=== PATIENT | male | born 1965 | race Caucasian/White ===

== ENCOUNTER 2022-05-12 20:27 | Emergency (ER) | payer MEDICAID, SELFPAY ==
[2022-05-12 20:34] VITALS: BP 128/90; PULSE 119; RESP 18; TEMP 36.6; O2SAT 97
--- NOTE | 2022-05-12 20:43 | W.ED.EXTPRO ---
Documented by User: Bayron Serra MD 05/22/22 21:10 HPI - Extremity Problem General: Chief complaint: Extremity Problem,Nontraumatic Stated complaint: cp Time Seen by Provider: 05/12/22 20:42 History of Present Illness: 57-year-old gentleman with complex past medical history including known CAD with cardiac stent, known peripheral arterial disease with vascular stent in the right lower extremity, noncompliance with medication regimen due to cost presenting to the emergency department due to multiple concerns. He reports being at his baseline health and had sudden onset earlier this afternoon of nausea and vomiting. He also had diarrhea. No blood or abnormal colors in either. He notes mild abdominal cramping however no significant pain. Approximately 2 hours ago he noted acute change in his foot. It felt cold and painful as well as numb and inability to move. This is mildly improved however he does report that this felt similar to prior episode of arterial stent occlusion. Upon arrival in the emergency department he began having chest pain as well. Intensity symptoms moderate. Course has been as noted. No other specific changes in health, exacerbating, or alleviating factors identified. Onset (ago): hour(s) Pain Consistency: constant Location: lower extremity Quality: aching Radiation: distal Relieving factors: nothing Exacerbating factors: nothing Associated symptoms: Reports other Review of Systems General: Reports: 10 or more systems reviewed and unremarkable except in HPI and below [facility] ED PFSH: Medical History (Updated 05/22/22 @ 21:07 by Bayron Serra MD) Tobacco abuse Surgical History (Updated 05/22/22 @ 21:07 by Bayron Serra MD) Status post insertion of iliac artery stent Physical Exam Const: COMMON NORMALS: alert GENERAL APPEARANCE: cooperative, well developed and ill appearing HENMT: COMMON NORMALS: normocephalic and atraumatic HEAD & SCALP: normocephalic and atraumatic THROAT: posterior oropharynx normal Eye: COMMON NORMALS: conjunctivae normal CONJUNCTIVA: Yes conjunctivae normal SCLERA: sclerae normal Neck/C-Spine: COMMON NORMALS: supple GENERAL: Yes trachea midline Resp: COMMON NORMALS: clear to auscultation bilaterally EFFORT & INSPECTION: Yes able to speak in complete sentences AUSCULTATION: clear to auscultation bilaterally Cardio: COMMON NORMALS: regular rhythm RATE: tachycardic RHYTHM: regular rhythm GI: COMMON NORMALS: Soft to palpation PALPATION: Yes Soft to palpation and No Tenderness to palpation present (GI) Extremity: NARRATIVE EXTREMITY EXAM: Right lower extremity color comparable to contralateral side. Mildly cool compared to contralateral side. Unable to obtain Doppler signals DP/PT however there is capillary refill which is approximately 4 seconds. Patient has sensation and movement returned. GENERAL: Yes normal exam except as noted and No edema Neuro: COMMON NORMALS: moves all extremities SENSORIUM/ORIENTATION: Yes alert and No Orientation impaired Psych: COMMON NORMALS: mental status grossly normal and Normal thought process present THOUGHT PROCESS: Normal thought process present Course Vital Signs: Vital signs: Vital Signs Temperature 97.9 F 05/12/22 20:34 Pulse Rate 98 05/13/22 02:19 Respiratory Rate 23 H 05/13/22 02:19 Blood Pressure 164/66 05/13/22 02:19 Pulse Oximetry 96 05/13/22 02:19 Oxygen Delivery Me thod 05/13/22 01:00 MDM - Extremity (Nontraumatic) Medical Decision Making 57-year-old gentleman presenting for concerning symptoms related to possibility of acute vascular insufficiency. These have improved somewhat from initial however still quite concerning. Labs notable for leukocytosis and elevated hemoglobin. Metabolic panel with elevated lactate and evidence of metabolic acidosis. Negative range 2-hour delta troponin. Patient treated during ED course with fluids, analgesia, antiemetic, aspirin as well as heparin drip after discussion of risks and benefits based on ultrasound findings. Discussed with cardiology?interventional. Patient requires further catheterization of location of lesion as we have the etiology to perform some vascular intervention however not all. Patient care handed off to overnight ED physician Dr. Chow pending CTA. 57-year-old male checked out to me at shift change by the previous physician. This omar is resting right lower extremity pain. Extremity is a bit dusky with sluggish capillary refill. CTA shows a right common iliac artery stent suspected to be occluded at the distal portion he also has a right mid superficial femoral artery occlusion. There are some reconstitution of flow. But, with resting leg pain, increasing white blood cell count, mild lactic acid elevation, etc. there is concern for acute leg ischemia. He is on heparin. Consulted with our branch or department chief librarian, but given proximal occlusion vascular surgery consultation is indicated. We do not have vascular surgery at this institution. I spoke with vascular surgery at [facility] in [place], and he has agreed to see the patient in the emergency department. We are working on transfer. Medical Records I reviewed the patient's medical records. Lab Data I reviewed the patient's lab results. 05/12/22 20:45 05/12/22 20:45 Radiology Impressions Chest X-Ray 05/12/22 20:49 IMPRESSION: No acute findings. Duplex Scan Lower Extremity Artery 05/12/22 20:49 IMPRESSION: Monophasic blood flow throughout the lower extremity arterial system reflecting a degree of stenosis with a focal mid superficial femoral artery occlusion with color blood flow seen distally. Aorta w/Runoff CTA 05/12/22 21:44 IMPRESSION: 1. Right common iliac artery stent which is suspected to be occluded in the distal portion with contrast seen distally in the right internal and external iliac vessels. 2. Right mid superficial femoral artery appears occluded with reconstitution of the distal superficial femoral artery. 3. Left mid superficial femoral artery appears occluded with reconstitution of the distal superficial femoral artery. 4. Left popliteal artery eccentric atherosclerotic calcification with 50 to 70% luminal narrowing suspected. 5. Prominent fluid in the stomach, small and large bowel may reflect a gastroenterocolitis, in the appropriate clinical setting. 6. Right popliteal artery eccentric atherosclerotic calcification with less than 50% luminal narrowing. Laboratory Results WBC 21.4 10^3/uL (4.0-10.0) H 05/12/22 20:45 RBC 5.73 10^6/uL (4.1-5.3) H 05/12/22 20:45 Hgb 18.3 g/dL (11.7-16.6) H 05/12/22 20:45 Hct 53.3 % (42.0-52.0) H 05/12/22 20:45 MCV 93.0 fl (80-94) 05/12/22 20:45 MCH 31.9 pg (28.0-34.0) 05/12/22 20:45 MCHC 34.3 g/dL (30.0-36.0) 05/12/22 20:45 RDW 12.9 % (12.1-15.1) 05/12/22 20:45 Plt Count 245 10^3/cmm (130-400) 05/12/22 20:45 MPV 10.3 fL (7.4-10.4) 05/12/22 20:45 Neut % (Auto) 91.4 % 05/12/22 20:45 Lymph % (Auto) 1.4 % 05/12/22 20:45 Shackelford % (Auto) 5.8 % 05/12/22 20:45 Eos % (Auto) 0.3 % 05/12/22 20:45 Baso % (Auto) 0.6 % 05/12/22 20:45 Neut # (Auto) 19.60 10^3/uL (1.8-7.7) H 05/12/22 20:45 Lymph # (Auto) 0.3 10^3/uL (0.8-4.8) L 05/12/22 20:45 Shackelford # (Auto) 1.3 10^3/uL (0.2-0.9) H 05/12/22 20:45 Eos # (Auto) 0.1 10^3/uL (0.0-0.8) 05/12/22 20:45 Baso # (Auto) 0.1 10^3/uL (0.0-0.1) 05/12/22 20:45 Nucleated RBC % (auto) 0 % 05/12/22 20:45 Nucleated RBCs # 0.0 /100WBC 05/12/22 20:45 PT 12.80 SECONDS (12.1-14.9) 05/12/22 20:45 INR 0.94 (0.8-1.2) 05/12/22 20:45 APTT 26.8 SECONDS (23.9-36.7) 05/12/22 20:45 Sodium 138 mmol/L (136-145) 05/12/22 20:45 Potassium 3.7 mmol/L (3.5-5.1) 05/12/22 20:45 Chloride 101 mmol/L (98-107) 05/12/22 20:45 Carbon Dioxide 18 mmol/L (22-29) L 05/12/22 20:45 Anion Gap 22.7 (5-19) H 05/12/22 20:45 BUN 11 mg/dL (6-20) 05/12/22 20:45 Creatinine 0.9 mg/dL (0.7-1.2) 05/12/22 20:45 GFR Calculation 86.4 mL/min (90-130) L 05/12/22 20:45 Glucose 137 mg/dL (65-115) H 05/12/22 20:45 Calculated Osmolality 288 mOsm/kg (285-295) 05/12/22 20:45 Lactate 2.8 mmol/L (0.5-2.2) H 05/12/22 22:00 Calcium 9.7 mg/dL (8.5-10.5) 05/12/22 20:45 Total Bilirubin 0.9 mg/dL (0.15-1.2) 05/12/22 20:45 AST 21 U/L (0-40) 05/12/22 20:45 ALT 22 U/L (0-41) 05/12/22 20:45 Alkaline Phosphatase 154 U/L (40-130) H 05/12/22 20:45 Troponin T Baseline 16 ng/L (0-15) H 05/12/22 20:45 Troponin T 120 Minute 13.59 ng/L (0-15) 05/12/22 22:30 Delta Troponin T -2.41 ABS# (0-10) L 05/12/22 22:30 Total Protein 7.2 g/dL (6.6-8.7) 05/12/22 20:45 Albumin 4.5 g/dL (3.5-5.2) 05/12/22 20:45 Globulin 2.7 g/dL (1.3-4.6) 05/12/22 20:45 Critical Care Time Critical Care Time: Critical Care Time: Yes Total Critical Care Time: 35 Attestation: Due to a high probability of clinically significant, possibly life threatening deterioration, the patient required my highest level of attention and preparedness to intervene emergently and I personally spent this critical care time directly and personally managing the patient. This critical care time included obtaining a history; examining the patient; pulse oximetry; ordering and review of laboratory and imaging studies; arranging urgent treatment with development of a management plan; evaluation of patient's response to treatment; frequent reassessment; and, discussions with other providers as applicable. It was exclusive of separately billable procedures. Primary system involved is vascular Discharge Plan Discharge Patient Disposition: Xfer Short-Term Hosp Clinical Impression: Acute occlusion of artery of lower extremity Condition: Fair Coding Level of Care Code ED Rotary Cutter Feeder for Chg Fwd Documented by User: Ramin Heriberto Geraldo, 05/14/22 12:28 HPI - Extremity Problem General: Chief complaint: Extremity Problem,Nontraumatic Stated complaint: cp Time Seen by Provider: 05/12/22 20:42 PFSH ED PFSH: Medical History (Updated 05/22/22 @ 21:07 by Bayron Serra MD) Tobacco abuse Surgical History (Updated 05/22/22 @ 21:07 by Bayron Serra MD) Status post insertion of iliac artery stent Course Consultations: Consultation #1: cezar, vascular surgery at [facility]. Vital Signs: Vital signs: Vital Signs Temperature 97.9 F 05/12/22 20:34 Pulse Rate 98 05/13/22 02:19 Respiratory Rate 23 H 05/13/22 02:19 Blood Pressure 164/66 05/13/22 02:19 Pulse Oximetry 96 05/13/22 02:19 Oxygen Delivery Me thod 05/13/22 01:00 MDM - Extremity (Nontraumatic) Medical Decision Making 57-year-old male checked out to me at shift change by the previous physician. This omar is resting right lower extremity pain. Extremity is a bit dusky with sluggish capillary refill. CTA shows a right common iliac artery stent suspected to be occluded at the distal portion he also has a right mid superficial femoral artery occlusion. There are some reconstitution of flow. But, with resting leg pain, increasing white blood cell count, mild lactic acid elevation, etc. there is concern for acute leg ischemia. He is on heparin. Consulted with our branch or department chief librarian, but given proximal occlusion vascular surgery consultation is indicated. We do not have vascular surgery at this institution. I spoke with vascular surgery at [facility] in [place], and he has agreed to see the patient in the emergency department. We are working on transfer. Lab Data 05/12/22 20:45 05/12/22 20:45 Radiology Impressions Chest X-Ray 05/12/22 20:49 IMPRESSION: No acute findings. Duplex Scan Lower Extremity Artery 05/12/22 20:49 IMPRESSION: Monophasic blood flow throughout the lower extremity arterial system reflecting a degree of stenosis with a focal mid superficial femoral artery occlusion with color blood flow seen distally. Aorta w/Runoff CTA 05/12/22 21:44 IMPRESSION: 1. Right common iliac artery stent which is suspected to be occluded in the distal portion with contrast seen distally in the right internal and external iliac vessels. 2. Right mid superficial femoral artery appears occluded with reconstitution of the distal superficial femoral artery. 3. Left mid superficial femoral artery appears occluded with reconstitution of the distal superficial femoral artery. 4. Left popliteal artery eccentric atherosclerotic calcification with 50 to 70% luminal narrowing suspected. 5. Prominent fluid in the stomach, small and large bowel may reflect a gastroenterocolitis, in the appropriate clinical setting. 6. Right popliteal artery eccentric atherosclerotic calcification with less than 50% luminal narrowing. Laboratory Results WBC 21.4 10^3/uL (4.0-10.0) H 05/12/22 20:45 RBC 5.73 10^6/uL (4.1-5.3) H 05/12/22 20:45 Hgb 18.3 g/dL (11.7-16.6) H 05/12/22 20:45 Hct 53.3 % (42.0-52.0) H 05/12/22 20:45 MCV 93.0 fl (80-94) 05/12/22 20:45 MCH 31.9 pg (28.0-34.0) 05/12/22 20:45 MCHC 34.3 g/dL (30.0-36.0) 05/12/22 20:45 RDW 12.9 % (12.1-15.1) 05/12/22 20:45 Plt Count 245 10^3/cmm (130-400) 05/12/22 20:45 MPV 10.3 fL (7.4-10.4) 05/12/22 20:45 Neut % (Auto) 91.4 % 05/12/22 20:45 Lymph % (Auto) 1.4 % 05/12/22 20:45 Shackelford % (Auto) 5.8 % 05/12/22 20:45 Eos % (Auto) 0.3 % 05/12/22 20:45 Baso % (Auto) 0.6 % 05/12/22 20:45 Neut # (Auto) 19.60 10^3/uL (1.8-7.7) H 05/12/22 20:45 Lymph # (Auto) 0.3 10^3/uL (0.8-4.8) L 05/12/22 20:45 Shackelford # (Auto) 1.3 10^3/uL (0.2-0.9) H 05/12/22 20:45 Eos # (Auto) 0.1 10^3/uL (0.0-0.8) 05/12/22 20:45 Baso # (Auto) 0.1 10^3/uL (0.0-0.1) 05/12/22 20:45 Nucleated RBC % (auto) 0 % 05/12/22 20:45 Nucleated RBCs # 0.0 /100WBC 05/12/22 20:45 PT 12.80 SECONDS (12.1-14.9) 05/12/22 20:45 INR 0.94 (0.8-1.2) 05/12/22 20:45 APTT 26.8 SECONDS (23.9-36.7) 05/12/22 20:45 Sodium 138 mmol/L (136-145) 05/12/22 20:45 Potassium 3.7 mmol/L (3.5-5.1) 05/12/22 20:45 Chloride 101 mmol/L (98-107) 05/12/22 20:45 Carbon Dioxide 18 mmol/L (22-29) L 05/12/22 20:45 Anion Gap 22.7 (5-19) H 05/12/22 20:45 BUN 11 mg/dL (6-20) 05/12/22 20:45 Creatinine 0.9 mg/dL (0.7-1.2) 05/12/22 20:45 GFR Calculation 86.4 mL/min (90-130) L 05/12/22 20:45 Glucose 137 mg/dL (65-115) H 05/12/22 20:45 Calculated Osmolality 288 mOsm/kg (285-295) 05/12/22 20:45 Lactate 2.8 mmol/L (0.5-2.2) H 05/12/22 22:00 Calcium 9.7 mg/dL (8.5-10.5) 05/12/22 20:45 Total Bilirubin 0.9 mg/dL (0.15-1.2) 05/12/22 20:45 AST 21 U/L (0-40) 05/12/22 20:45 ALT 22 U/L (0-41) 05/12/22 20:45 Alkaline Phosphatase 154 U/L (40-130) H 05/12/22 20:45 Troponin T Baseline 16 ng/L (0-15) H 05/12/22 20:45 Troponin T 120 Minute 13.59 ng/L (0-15) 05/12/22 22:30 Delta Troponin T -2.41 ABS# (0-10) L 05/12/22 22:30 Total Protein 7.2 g/dL (6.6-8.7) 05/12/22 20:45 Albumin 4.5 g/dL (3.5-5.2) 05/12/22 20:45 Globulin 2.7 g/dL (1.3-4.6) 05/12/22 20:45 Discharge Plan Discharge Patient Disposition: Xfer Short-Term Hosp Clinical Impression: Acute occlusion of artery of lower extremity Condition: Fair Coding Level of Care Code ED Rotary Cutter Feeder for Artie Solis
--- NOTE | 2022-05-12 20:49 | XRR_ITS ---
PROCEDURE INFORMATION: Exam: XR Chest Exam date and time: 05/12/2022 8:57 PM Age: 57 years old Clinical indication: Angina and shortness of breath; Prior surgery; Patient HX: RT toes turning white. HX of collapsed stent; Additional info: Cp TECHNIQUE: Imaging protocol: Radiologic exam of the chest. Views: 1 view. COMPARISON: No relevant prior studies available. FINDINGS: Lungs: Unremarkable. No consolidation. Pleural spaces: Unremarkable. No pleural effusion. No pneumothorax. Heart/Mediastinum: Unremarkable. No cardiomegaly. Bones/joints: Unremarkable. XR/XR chest 1V portable [id number] IMPRESSION: No acute findings.
--- NOTE | 2022-05-12 20:49 | USR_ITS ---
PROCEDURE INFORMATION: Exam: US Duplex Right Lower Extremity Arteries Or Arterial Bypass Grafts Exam date and time: 05/12/2022 9:06 PM Age: 57 years old Clinical indication: Pain; Leg, lower; Right; Prior surgery; Surgery date: 6+ months; Additional info: HX stent, leg pain, paresthesias TECHNIQUE: Imaging protocol: Right Real-time duplex scan of the arteries or arterial bypass grafts of the right lower extremity with 2-D gordon scale, color Doppler flow and spectral waveform analysis. Images documented and saved. COMPARISON: No relevant prior studies available. FINDINGS: Right common femoral artery: Monophasic blood flow throughout the lower extremity arterial system reflecting a degree of stenosis with a focal mid superficial femoral artery occlusion with color blood flow seen distally. Right superficial femoral artery: See above. Right popliteal artery: See above. Right calf/foot arteries: See above. Soft tissues: No hematoma or [place]. US/[place] [id number] IMPRESSION: Monophasic blood flow throughout the lower extremity arterial system reflecting a degree of stenosis with a focal mid superficial femoral artery occlusion with color blood flow seen distally.
[2022-05-12] MEDS: morphine 4 mg/mL SDV 1 mL IVP ×2 (21:03→23:08)
[2022-05-12] MEDS: ondansetron 2 mg/ML SDV 2 mL 4 MG IVP (21:03)
[2022-05-12] MEDS: sodium chloride 0.9% 1,000 ML 999 ML IV (21:04)
[2022-05-12 21:17] LABS: Basophils # 0.1 10^3/uL (0.0-0.1); Basophils % 0.6 %; Eosinophils # 0.1 10^3/uL (0.0-0.8); Eosinophils % 0.3 %; Hematocrit 53.3 % (42.0-52.0); Hemoglobin 18.3 g/dL (11.7-16.6); Lymphocytes # 0.3 10^3/uL (0.8-4.8); Lymphocytes % 1.4 %; Mean Corpuscular HGB Conc 34.3 g/dL (30.0-36.0); Mean Corpuscular Hemoglobin 31.9 pg (28.0-34.0); Mean Platelet Volume 10.3 fL (7.4-10.4); Monocytes # 1.3 10^3/uL (0.2-0.9); Monocytes % 5.8 %; Neutrophils % 91.4 %; Nucleated Red Blood Cells % 0 %; Platelet Count 245 10^3/cmm (130-400); Red Blood Count 5.73 10^6/uL (4.1-5.3); Red Cell Distribution Width 12.9 % (12.1-15.1); White Blood Count 21.4 10^3/uL (4.0-10.0)
[2022-05-12 21:23] LABS: INR 0.94 (0.8-1.2)
[2022-05-12 21:24] LABS: Partial Thromboplastin Time 26.8 SECONDS (23.9-36.7)
[2022-05-12 21:35] LABS: Troponin(5th) Baseline 16 ng/L (0-15)
[2022-05-12 21:37] LABS: Alanine Aminotransferase 22 U/L (0-41); Albumin Level 4.5 g/dL (3.5-5.2); Alkaline Phosphatase 154 U/L (40-130); Anion Gap 22.7 (5-19); Aspartate Amino Transferase 21 U/L (0-40); Blood Urea Nitrogen 11 mg/dL (6-20); Calcium 9.7 mg/dL (8.5-10.5); Carbon Dioxide 18 mmol/L (22-29); Chloride 101 mmol/L (98-107); Globulin 2.7 g/dL (1.3-4.6); Glomerular Filtration Rate 86.4 mL/min (90-130); Glucose 137 mg/dL (65-115); Osmolality Calculated 288 mOsm/kg (285-295); Potassium 3.7 mmol/L (3.5-5.1); Sodium 138 mmol/L (136-145); Total Bilirubin 0.9 mg/dL (0.15-1.2); Total Protein 7.2 g/dL (6.6-8.7)
--- NOTE | 2022-05-12 21:44 | CTR_ITS ---
PROCEDURE INFORMATION: Exam: CTA Abdominal Aorta and Bilateral Lower Extremities (Run-off) With Contrast Exam date and time: 05/12/2022 11:26 PM Age: 57 years old Clinical indication: Numbness; Foot and lower extremity; Right; Prior surgery; Surgery date: 6+ months; Surgery type: Stent; Additional info: Abd pain, n/d, rle numbness weakness w HX stent TECHNIQUE: Imaging protocol: Computed tomographic angiography of the of the abdominal aorta, pelvis and bilateral lower extremities with contrast. 3D rendering (Not supervised by radiologist): MIP and/or 3D reconstructed images were created by the technologist. Radiation optimization: All CT scans at this facility use at least one of these dose optimization techniques: automated exposure control; mA and/or kV adjustment per patient size (includes targeted exams where dose is matched to clinical indication); or iterative reconstruction. Contrast material: OMNI 350; Contrast volume: 100 ml; Contrast route: INTRAVENOUS (IV); COMPARISON: [place] [id number] 05/12/2022 9:06 PM RADIATION DOSE METRICS: Total DLP (mGy-cm): 959.73 FINDINGS: Aorta: No aortic aneurysm. No aortic dissection. Celiac trunk and mesenteric arteries: No occlusion or significant stenosis. Renal arteries: No occlusion or significant stenosis. Right iliac arteries: Right common iliac artery stent which is suspected to be occluded in the distal portion with contrast seen distally in the right internal and external iliac vessels. Right femoral/popliteal arteries: Right mid superficial femoral artery appears occluded with reconstitution of the distal superficial femoral artery. Right popliteal artery eccentric atherosclerotic calcification with less than 50% luminal narrowing. Right infrapopliteal arteries: No occlusion or significant stenosis. Left iliac arteries: No occlusion or significant stenosis. Left femoral/popliteal arteries: Left mid superficial femoral artery appears occluded with reconstitution of the distal superficial femoral artery. Left popliteal artery eccentric atherosclerotic calcification with 50 to 70% luminal narrowing suspected. Left infrapopliteal arteries: No occlusion or significant stenosis. Liver: No mass. Gallbladder and bile ducts: Unremarkable. No calcified stones. No ductal dilation. Pancreas: Unremarkable. No mass. No ductal dilation. Spleen: Normal. No splenomegaly. Adrenal glands: Normal. No mass. Kidneys and ureters: Normal. No mass. Stomach and bowel: Prominent fluid in the stomach, small and large bowel may reflect a gastroenterocolitis, in the appropriate clinical setting.. Appendix: No evidence of appendicitis. Urinary bladder: Unremarkable. No mass. Reproductive: Unremarkable as visualized. Intraperitoneal space: Unremarkable. No free air. No significant fluid collection. Lymph nodes: No lymphadenopathy. Bones/joints: Chronic bilateral pars interarticularis defects. Soft tissues: Unremarkable. CT/CT angio abd aorta runof [id number] IMPRESSION: 1. Right common iliac artery stent which is suspected to be occluded in the distal portion with contrast seen distally in the right internal and external iliac vessels. 2. Right mid superficial femoral artery appears occluded with reconstitution of the distal superficial femoral artery. 3. Left mid superficial femoral artery appears occluded with reconstitution of the distal superficial femoral artery. 4. Left popliteal artery eccentric atherosclerotic calcification with 50 to 70% luminal narrowing suspected. 5. Prominent fluid in the stomach, small and large bowel may reflect a gastroenterocolitis, in the appropriate clinical setting. 6. Right popliteal artery eccentric atherosclerotic calcification with less than 50% luminal narrowing.
[2022-05-12] MEDS: alum-mag-hydroxide-sime 30 mL UDC PO (22:19)
[2022-05-12] MEDS: aspirin 81 mg Chew Tablet 324 MG PO (22:19)
[2022-05-12 22:32] LABS: Lactate (Lactic Acid level) 2.8 mmol/L (0.5-2.2)
--- NOTE | 2022-05-12 22:40 | ECG_ITS ---
[facility] Test Date: 2022-05-12 Pat Name: Alen Perez Department: Room: Gender: Male Cotton Dispatcher: : 1965 Requested By: Bayron Serra Order Number: [id number] Александр MD: Ruy Bishop M.D. Measurements Intervals Fletcher Rate: 95 P: 64 ND: 112 QRS: -8 QRSD: 154 T: 122 QT: 402 QTc: 506 Interpretive Statements SINUS RHYTHM WITH SHORT ND INTERVAL POSSIBLE LEFT ATRIAL ENLARGEMENT [-0.1mV P-WAVE IN V1/V2] LEFT BUNDLE BRANCH BLOCK [120+ ms QRS DURATION, 80+ ms Q/S IN V1/V2, 85+ ms R IN I/aVL/V5/V6] No previous ECG available for comparison Electronically Signed On 05-14-2022 7:49:36 MACHINE PECAN PICKER by Ruy Bishop M.D. [id number]
[2022-05-12 23:08] VITALS: BP 161/92; PULSE 98; RESP 20; O2SAT 93
[2022-05-12 23:23] LABS: Troponin 5 2HR 13.59 ng/L (0-15)
[2022-05-12] MEDS: heparin 5,000 unit/mL INJ 1 mL IV (23:46)
[2022-05-12] MEDS: heparin drip 25,000 UNIT/500 ML PREMIX 18 UNIT IV (23:48)
[2022-05-13] VITALS: BP 155/85; PULSE 96; RESP 21; O2SAT 94
[2022-05-13 01:00] VITALS: BP 146/61; PULSE 91; RESP 16; O2SAT 93
--- NOTE | 2022-05-13 01:42 | PC.NURSE ---
Transfer to [facility]. Report called @ [phone] to [facility] ER. Information provided to Opal burleson,
[2022-05-13 02:15] VITALS: BP 162/68; PULSE 96; RESP 23; O2SAT 96
[2022-05-13 02:19] VITALS: BP 164/66; PULSE 98; RESP 23; O2SAT 96
[2022-05-13 02:47] LABS: Troponin 5 2HR Delta -2.41 ABS# (0-10)
== END 2022-05-13 02:21 | disposition short-term general hospital (02) ==
PROVIDERS: Emergency Medicine; Emergency Provider Emergency Medicine
DX: I77.1 Stricture of artery (principal); I25.10 Atherosclerotic heart disease of native coronary artery without angina pectoris; Z91.14 Patient's other noncompliance with medication regimen; Z59.89 Other problems related to housing and economic circumstances
CPT/HCPCS: 36415; 71045; 75635; 80053; 83605; 84484; 85025; 85610; 85730; 87040; 93005; 93926; 96365; 96366; 96375; 96376; 99285; J1644; J2270; J2405; J7030; Q9967

== ENCOUNTER 2022-07-16 12:52 | Outpatient (CLI) | payer BC, MEDICAID, SELFPAY ==
--- NOTE | 2022-07-16 13:00 | CT_ITS ---
WS: [id number] CT CHEST WITH INTRAVENOUS CONTRAST HISTORY: Pulmonary nodules on chest x-ray TECHNIQUE: Contiguous 5 mm axial imaging performed on the thorax. Coronal and sagittal reformats are submitted. All CT scans at [facility] use at least one of these dose optimization techniques: automated exposure control; mA and/or kV adjustment per patient size (includes targeted exams where dose is matched to clinical indication); or iterative reconstruction. CONTRAST: Omnipaque 350; 100 mL IV. DLP: 181.21 mGy.cm COMPARISON: Chest radiograph 05/12/2022 Lungs and central airway: Lungs are clear and well aerated. No pulmonary mass or nodule. Pleura: Normal. No pleural effusion. Heart and pericardium: Heart is normal size. There is marked LEFT ventricular hypertrophy. Intraventr icular septum is measuring just over 2 cm. Mediastinum and yasmine: No mediastinum or hilar adenopathy. Vessels: Minimal atherosclerosis aorta. Normal size pulmonary artery. Chest wall and lower neck: No soft tissue masses. Upper abdomen: Small hiatal hernia. Minimal hyperplasia LEFT adrenal gland. Osseous structures: No destructive process. CT/CT chest w con* [id number] IMPRESSION: 1. No pulmonary mass or nodule. No pneumonia. 2. Diffuse marked LEFT ventricular hypertrophy. Interventricular septum is oscar suring just over 2 cm. Recommend follow-up with cardiology and echocardiography .
[2022-07-16] MEDS: iohexol 350 mg/mL 500 mL Btl (per mL) IV (13:09)
== END 2022-07-16 12:53 | disposition home or self-care (01) ==
LOC: RAD 12:57
PROVIDERS: PCP Family Medicine Adult Medicine; Visit Provider Family Medicine Adult Medicine
DX: R91.1 Solitary pulmonary nodule (principal); Z72.0 Tobacco use
CPT/HCPCS: 71260; Q9967

== ENCOUNTER → 2022-11-27 10:37 | Outpatient (BNVA) | payer BC, MEDICAID, SELFPAY | PROVIDERS: PCP Family Medicine Adult Medicine; Visit Provider Family Medicine Adult Medicine | DX: D64.9 Anemia, unspecified (principal) | CPT/HCPCS: 80053; 85025 ==

== ENCOUNTER → 2024-06-17 13:43 | Outpatient (BNVA) | payer BC, MEDICAID, SELFPAY | PROVIDERS: PCP Family Medicine; Visit Provider Family Medicine | DX: K63.5 Polyp of colon (principal); G47.00 Insomnia, unspecified; I10 Essential (primary) hypertension; I25.10 Atherosclerotic heart disease of native coronary artery without angina pectoris; Z98.61 Coronary angioplasty status; I73.9 Peripheral vascular disease, unspecified; E78.00 Pure hypercholesterolemia, unspecified; R73.01 Impaired fasting glucose; K21.9 Gastro-esophageal reflux disease without esophagitis; Z12.2 Encounter for screening for malignant neoplasm of respiratory organs | CPT/HCPCS: 80053; 80061; 82607; 83036; 84439; 84443; 85025 ==

== ENCOUNTER 2024-07-09 12:33 | Outpatient (CLI) | payer BC, MEDICAID, SELFPAY ==
--- NOTE | 2024-07-09 12:30 | CT_ITS ---
WS: [id number] LDCT LUNG CANCER SCREENING TECHNIQUE: Noncontrast CT of the chest with coronal and sagittal reformatted images. CLINICAL INFORMATION: ex smoker; at least 50pk yr; screening COMPARISON: CT chest 2022 DLP: 55.09 mGy.cm DIvol: Mean CTDIvol: 0.80 (mGy) All CT scans at [facility] use at least one of these dose optimization techniques: automated exposure control; mA and/or kV adjustment per patient size (includes targeted exams where dose is matched to clinical indication); or iterative reconstruction. FINDINGS: Tiny noncalcified nodule RIGHT upper lobe. Subsegmental atelectasis RIGHT lower lobe. Normal caliber thoracic aorta. Aortic calcification. Coronary calcification. Adrenal glands are normal. Normal GE junction. No axillary lymphadenopathy. Mild thoracic curve. Mild thoracic kyphosis. CT/CT lung screening [id number] IMPRESSION: LUNG-RADS: 2-Benign Appearance or Behavior FOLLOW UP: 12 Month: Continue annual screening with LDCT
== END 2024-07-09 12:34 | disposition home or self-care (01) ==
PROVIDERS: PCP Family Medicine; Visit Provider Family Medicine
DX: F17.211 Nicotine dependence, cigarettes, in remission (principal); Z12.2 Encounter for screening for malignant neoplasm of respiratory organs; J98.11 Atelectasis; I70.0 Atherosclerosis of aorta; I25.10 Atherosclerotic heart disease of native coronary artery without angina pectoris; M43.8X4 Other specified deforming dorsopathies, thoracic region; M40.294 Other kyphosis, thoracic region
CPT/HCPCS: 71271

== ENCOUNTER 2024-08-26 07:48 | Outpatient (CLI) | payer BC, MEDICAID, SELFPAY ==
--- NOTE | 2024-08-26 07:51 | XR_ITS ---
WS: [email or web address] XR lumbar spine 2-3V* [id number] REASON FOR EXAM: chronic low back pain FINDINGS: Relatively normal lumbar spine curvatures. Mild biconcave compression deformities of L1 and L5. Most notably L2. Compared to the sagittal image of the lumbar spine on previous angiographic CT scan 05/12/2022, these are chronic abnormalities, unchanged. The intervertebral disc spaces are intact and relatively well preserved. There is minimal osteophytosis of the vertebral bodies L1-L5. There is mild anterolisthesis of L5 in relation to L4 and S1. Lumbar spine images of the previous angiographic CT scan indicates bilateral spondylolysis at L5-S1. XR/XR lumbar spine 2-3V* [id number] IMPRESSION: Mild degenerative spondylosis with mild listhesis and spondylolysis at L5-S1 as above.
--- NOTE | 2024-08-26 07:51 | XR_ITS ---
WS: [email or web address] XR knee LT 3V* [id number] REASON FOR EXAM: chronic knee pain left FINDINGS: No fracture or focal bone lesion. Mild narrowing of the medial joint space with mild subchondral sclerosis. Lateral knee joint space is intact with minimal subchondral sclerosis. Patellofemoral joint space is intact with mild subchondral sclerosis. XR/XR knee LT 3V* [id number] IMPRESSION: Minimal to mild osteoarthritis of the left knee as above.
--- NOTE | 2024-08-26 07:51 | XR_ITS ---
WS: [email or web address] XR pelvis 1-2V* [id number] REASON FOR EXAM: bilateral inguinal pain FINDINGS: Normal sacroiliac joints. No sacral insufficiency fractures. Mild symmetric osteoarthritis of the hip joints. Iliac wings and pubic rami intact. No significant abnormality of the pubic symphysis. XR/XR pelvis 1-2V* [id number] IMPRESSION: Mild osteoarthritis of both hips otherwise no significant abnormality.
== END 2024-08-26 07:49 | disposition home or self-care (01) ==
PROVIDERS: PCP Family Medicine; Visit Provider Family Medicine
DX: R10.2 Pelvic and perineal pain (principal); M47.896 Other spondylosis, lumbar region; M17.12 Unilateral primary osteoarthritis, left knee; M43.07 Spondylolysis, lumbosacral region; M48.56XD Collapsed vertebra, not elsewhere classified, lumbar region, subsequent encounter for fracture with routine healing; M16.0 Bilateral primary osteoarthritis of hip
CPT/HCPCS: 72100; 72170; 73562

== ENCOUNTER 2024-08-30 07:35 | Outpatient (CLI) | payer BC, MEDICAID, SELFPAY ==
--- NOTE | 2024-08-30 08:00 | MR_ITS ---
WS: [id number] MRI LUMBAR SPINE NONCONTRAST TECHNIQUE: Sagittal T1, T2 and STIR imaging. Axial T1 and T2 imaging. CLINICAL INFORMATION: chronic back pain bilateral sciatica; COMPARISON: None. FINDINGS: Mild lumbar curve. No acute compression. No high-grade central canal stenosis. Grade 1 anterolisthesis L5 on S1. Chronic spondylolysis L5-S1. L1-L2: Mild facet arthropathy. Spinal canal and foramen are patent. L2-L3: Mild disc bulging. Narrowing of the LEFT subarticular recess. Mild LEFT foraminal narrowing. Mild facet arthropathy. L3-L4: Mild annular bulging. Moderate facet arthropathy. Small facet effusions. Mild LEFT foraminal narrowing. RIGHT foramen is patent. L4-L5: No significant disc bulging. Spinal canal and foramen are patent. Moderate facet arthropathy. L5-S1: Chronic spondylolysis with grade 1 anterolisthesis. Moderate facet arthropathy. Mild LEFT foraminal narrowing. RIGHT foramen is patent. Visualized pelvic bony structures: Normal. Paravertebral soft tissues: Normal. MR/MR lumbar spine wo con* [id number] IMPRESSION: 1. Mild lumbar curve. No acute compression. 2. Chronic spondylolysis L5-S1 with grade 1 anterolisthesis. 3. Disc bulging L2-3 with narrowing of the LEFT subarticular recess. Mild LEFT foraminal narrowing. 4. Mild LEFT L3-4 foraminal narrowing with a small LEFT foraminal protrusion.
== END 2024-08-30 07:36 | disposition home or self-care (01) ==
PROVIDERS: PCP Family Medicine; Visit Provider Family Medicine
DX: M43.07 Spondylolysis, lumbosacral region (principal); M43.8X6 Other specified deforming dorsopathies, lumbar region; M51.369 Other intervertebral disc degeneration, lumbar region without mention of lumbar back pain or lower extremity pain; M48.061 Spinal stenosis, lumbar region without neurogenic claudication; M51.26 Other intervertebral disc displacement, lumbar region; M47.896 Other spondylosis, lumbar region; M47.897 Other spondylosis, lumbosacral region; M48.07 Spinal stenosis, lumbosacral region; M25.48 Effusion, other site
CPT/HCPCS: 72148